=== PATIENT | male | born 1985 | race Two or more races ===

== ENCOUNTER 2020-05-11 16:14 | Inpatient (IN) | payer OTHER ==
[~2020-05-11] VITALS: Ht 177.8 cm; Wt 94.1 kg
[2020-05-11] MEDS ORDERED: SODIUM CHLORIDE 0.9% 1,000 ML IVB ONE (16:34)
[2020-05-11] MEDS ORDERED: ONDANSETRON HCL 4 MG/2 ML VIAL IV ONE (16:45)
[2020-05-11 17:14] LABS: Basophils # (auto) 0.1 10 ^3/uL (0-0.2); Basophils % (auto) 0.5 % (0.0-2.0); Eosinophils # (auto) 0.2 10 ^3/uL (0-0.8); Eosinophils % (auto) 2.1 % (0.0-7.0); Hematocrit 49.2 % (41.0-53.0); Hemoglobin 16.1 g/dL (13.5-17.5); Lymphocytes # (auto) 3.4 10 ^3/uL (0.4-5.4); Mean Corpuscular Hgb Conc. 32.8 g/dL (32.0-36.0); Mean Corpuscular Volume 85.4 fL (80.0-100.0); Monocytes # (auto) 0.5 10 ^3/uL (0-1.3); Monocytes % (auto) 5.5 % (0.0-12.0); Neutrophils # (auto) 5.6 10 ^3/uL (1.6-8.6); Neutrophils % (auto) 56.9 % (37.0-80.0); Nucleated Red Blood Cells % 0.3 %; Platelet Count (auto) 261 10^3/uL (140-450); Red Blood Cells 5.76 10^6/uL (4.5-5.90); Red Cell Distribution Width 13.8 % (11.8-14.3); White Blood Cell 9.8 10^3/uL (4.4-10.8)
[2020-05-11 17:27] LABS: Calcium 9.1 mg/dL (8.5-10.1); Chloride 109 mmol/L (98-107); Potassium 3.8 mmol/L (3.5-5.1); Sodium 139 mmol/L (136-145)
[2020-05-11 17:31] LABS: Alanine Aminotransferase 110 U/L (16-61); Albumin 4.1 g/dL (3.4-5.0); Anion Gap 10 (5-15); Aspartate Aminotransferase 38 U/L (15-37); BUN/Creatinine Ratio 16.2; Blood Urea Nitrogen 16 mg/dL (7-18); Carbon Dioxide 20 mmol/L (21-32); GFR African American 113 mL/min; GFR Non-African American 93 mL/min; Glucose 99 mg/dL (74-106); Lipase 122 U/L (73-393)
[2020-05-11 17:33] LABS: Alkaline Phosphatase 137 U/L (45-117); Bilirubin, Total 0.7 mg/dL (0.2-1.0); Total Protein 8.5 g/dL (6.4-8.2)
[2020-05-11] MEDS ORDERED: MORPHINE SULFATE 4 MG/ML SYR/VIAL IV ONE (18:15)
[2020-05-11 18:27] LABS: Urine Bacteria NONE SEEN /hpf (None Seen); Urine Blood Negative /uL (Negative); Urine Mucus FEW (None Seen); Urine Specific Gravity 1.019 (1.001-1.035); Urine WBC 1 /hpf (0 - 3)
[2020-05-11] MEDS ORDERED: ONDANSETRON HCL 4 MG/2 ML VIAL IV PRN (19:00)
[2020-05-11] MEDS ORDERED: NITROGLYCERIN 0.4 MG SL TAB SL PRN (19:00)
[2020-05-11] MEDS ORDERED: MORPHINE SULF INJ 2 MG/ML SYRINGE 1ML IV PRN (19:00)
[2020-05-11] MEDS ORDERED: D5W/SOD CHL 0.45% 1,000 ML IV ONE (19:00)
[2020-05-11 19:58] LABS: INR 1.01 (0.9-1.15); Partial Thromboplastin Time 28.6 sec (23.0-31.2)
--- NOTE | 2020-05-11 21:40 | NUR ---
Opening Shift Note Patient came up to unit via wheelchair. Assumed care of patient, awake and alert. A&O x4. No S/S of distress/SOB or pain. Oriented patient to unit and room. Patient verbalized understanding. Safety measures maintained by keeping the bed locked in lowest position, 2 side rails up, personal items and call light within reach. Instructed on POC and to call for assist PRN, will continue to monitor for changes Q1hr and PRN.
[2020-05-11] MEDS: PIPERACILLIN-TAZO 4.5GM 100 ML IV SCH (23:31)
[2020-05-12 01:10] VITALS: BP 135/75
[2020-05-12] MEDS: MORPHINE SULFATE 4 MG/ML SYR/VIAL IV PRN ×5 (01:51→19:49)
--- NOTE | 2020-05-12 02:10 | NUR ---
COVID Swab Walked COVID swab down to lab
[2020-05-12 05:00] VITALS: BP 152/84
[2020-05-12] MEDS: PIPERACILLIN-TAZO 4.5GM 100 ML IV SCH ×3 (06:53→21:54)
[2020-05-12 08:07] LABS: Basophils # (auto) 0 10 ^3/uL (0-0.2); Basophils % (auto) 0.5 % (0.0-2.0); Eosinophils # (auto) 0.3 10 ^3/uL (0-0.8); Eosinophils % (auto) 3.4 % (0.0-7.0); Hematocrit 46.4 % (41.0-53.0); Hemoglobin 15.4 g/dL (13.5-17.5); Lymphocytes # (auto) 2.5 10 ^3/uL (0.4-5.4); Lymphocytes % (auto) 30.5 % (10.0-50.0); Mean Corpuscular Hemoglobin 28.2 pg (28.0-32.0); Mean Corpuscular Hgb Conc. 33.2 g/dL (32.0-36.0); Mean Corpuscular Volume 84.9 fL (80.0-100.0); Monocytes # (auto) 0.5 10 ^3/uL (0-1.3); Monocytes % (auto) 6.1 % (0.0-12.0); Neutrophils # (auto) 4.8 10 ^3/uL (1.6-8.6); Neutrophils % (auto) 59.5 % (37.0-80.0); Nucleated Red Blood Cells % 0.2 %; Platelet Count (auto) 228 10^3/uL (140-450); Red Blood Cells 5.47 10^6/uL (4.5-5.90); Red Cell Distribution Width 13.4 % (11.8-14.3); White Blood Cell 8.1 10^3/uL (4.4-10.8)
[2020-05-12 08:25] LABS: Albumin 3.8 g/dL (3.4-5.0); Calcium 8.9 mg/dL (8.5-10.1); Potassium 3.9 mmol/L (3.5-5.1)
[2020-05-12 08:28] LABS: Total Protein 7.6 g/dL (6.4-8.2)
--- NOTE | 2020-05-12 08:40 | NUR ---
C/O PAIN LAST DOSE MORPHINE GIVEN AT 0632. Q 4HR NOT EFFECTIVE. DR DHRUV PARKER FOR ORDERS
[2020-05-12 09:00] VITALS: BP 144/94
[2020-05-12] MEDS: ENOXAPARIN SOD 40 MG/0.4 ML SYRINGE SC SCH (10:58)
[2020-05-12] MEDS: PANTOPRAZOLE 40 MG/10 ML VIAL INJ IV SCH (10:58)
[2020-05-12 12:57] VITALS: BP 147/77
[2020-05-12 17:00] VITALS: BP 134/78
--- NOTE | 2020-05-12 19:30 | NUR ---
Opening Shift Note Assumed care of patient, awake and alert. A&Ox4. Patient lying in bed. Patient complaining of abdominal pain, 05/18. Medication given. Safety measures maintained by keeping the bed locked in lowest position, 2 side rails up, personal items and call light within reach. Instructed on POC and to call for assist PRN, will continue to monitor for changes Q1hr and PRN.
[2020-05-12 22:00] VITALS: BP 139/89
[2020-05-13] MEDS: MORPHINE SULFATE 4 MG/ML SYR/VIAL IV PRN ×3 (00:15→09:26)
[2020-05-13 05:00] VITALS: BP 144/73
[2020-05-13 06:21] LABS: Potassium 3.8 mmol/L (3.5-5.1)
[2020-05-13 06:28] LABS: Albumin 3.6 g/dL (3.4-5.0); BUN/Creatinine Ratio 8.8; Bilirubin, Total 0.9 mg/dL (0.2-1.0); Calcium 8.3 mg/dL (8.5-10.1); Total Protein 7.1 g/dL (6.4-8.2)
[2020-05-13] MEDS: PIPERACILLIN-TAZO 4.5GM 100 ML IV SCH ×2 (07:05→22:03)
[2020-05-13 09:00] VITALS: BP 131/79
[2020-05-13] MEDS: PANTOPRAZOLE 40 MG/10 ML VIAL INJ IV SCH (11:50)
[2020-05-13] MEDS: ENOXAPARIN SOD 40 MG/0.4 ML SYRINGE SC SCH (11:51)
--- NOTE | 2020-05-13 11:59 | NUR ---
IV HEPLOCKED AND WRAPPED. SHOWERS. EDUCATION ON GALL BLADDER SX PRINTED IN SWISS PROVIDED
[2020-05-13 12:49] VITALS: BP 133/85
[2020-05-13] MEDS ORDERED: LIDOCAINE 1% HCL (LOCAL ANESTH.) INJ 20ML MDV ONE (14:02)
[2020-05-13] MEDS ORDERED: BUPIVACAINE HCL 50 ML ONE (14:02)
--- NOTE | 2020-05-13 14:10 | NUR ---
PT TO OR WITH PREOP RN'S AND CORRECTION OFFICERS.
[2020-05-13] MEDS ORDERED: fentaNYL CITRATE 100 MCG/2 ML VL ONE (14:13)
[2020-05-13] MEDS ORDERED: MIDAZOLAM HCL 1MG/1ML-2 ML VIAL ONE (14:13)
[2020-05-13] MEDS ORDERED: MEPERIDINE HCL (50 MG/ML) 1 ML VIAL ONE (14:13)
[2020-05-13] MEDS ORDERED: ceFAZolin 1GM/50ML 50 ML IV ONE (14:23)
[2020-05-13] MEDS ORDERED: DexAMETHasone SOD PHOS 10MG/1ML VIAL INJ ONE (14:53)
[2020-05-13] MEDS ORDERED: PROPOFOL 10 MG/ML 20 ML IV ONE (14:54)
[2020-05-13] MEDS ORDERED: ROCURONIUM 10MG/ML 10ML VIAL IV ONE (15:02)
[2020-05-13] MEDS ORDERED: GLYCOPYRROLATE 0.2 MG/ML 1ML VIAL ONE (15:52)
[2020-05-13] MEDS ORDERED: NEOSTIGMINE 1 MG/ML INJ (10mg/10ML VIAL) ONE (15:52)
[2020-05-13] MEDS ORDERED: OXYCODONE W/ ACETAMINOPHEN 5/325MG TABLET PO PRN ×2 (16:15)
[2020-05-13] MEDS ORDERED: MORPHINE SULF INJ 2 MG/ML SYRINGE 1ML IV PRN (16:15)
[2020-05-13] MEDS ORDERED: HYDROmorphone HCL 2 MG/ML VL IV PRN (17:00)
[2020-05-13] MEDS ORDERED: ONDANSETRON HCL 4 MG/2 ML VIAL IV PRN ×2 (17:00→20:30)
[2020-05-13] MEDS ORDERED: MORPHINE SULFATE 4 MG/ML SYR/VIAL IV PRN (17:00)
[2020-05-13] MEDS ORDERED: ePHEDrine SULFATE 50 MG/ML AMP IV PRN (17:00)
[2020-05-13] MEDS ORDERED: LABETALOL HCL 5 MG/ML 4ML SYRINGE IV PRN (17:00)
[2020-05-13] MEDS ORDERED: ONDANSETRON HCL 4 MG/2 ML VIAL ONE (19:29)
--- NOTE | 2020-05-13 19:33 | NUR ---
ON RETURN FROM PACU. DROWSY EASY TO AROUSE. 5 PUNCTURE SITES WITH OCCLUSIVE DSG TO ABDOMEN WITH SOME STAINING. ABDOMEN SOFT TO TOUCH NON DISTENDED. PT UP TO BR TIMES TWO. BELCHES C/O NAUSEA. MENDIETA COMPLEXION. MEDICATED WITH ZOFRAN 4MG IV PRN. IV FLUIDS 0.9 NS AT 100CC/HR SET TO PUMP.
[2020-05-13] MEDS ORDERED: ALBUMIN 5% 250 ML IV ONE ×2 (21:01→21:30)
--- NOTE | 2020-05-13 21:05 | NUR ---
WEDGER MACHINE made this nurse aware pf pt's BP reading at 79/41. pt was immediately reassessed with the WEDGER MACHINE and nurse together at bedside. pt's BP was assessed on both arms multiple times, all BPs ranged in the 70s/40s, HR was 118 initially and stayed in the 110s. all other v/s were WNL. pt was pale and lethargic. it was at this time that a code assist was called. refer to code assist charting for further details on the occurrence.
[2020-05-13 21:27] LABS: Albumin 2.7 g/dL (3.4-5.0); Anion Gap 10 (5-15); BUN/Creatinine Ratio 7.5; Blood Urea Nitrogen 11 mg/dL (7-18); Carbon Dioxide 19 mmol/L (21-32); Chloride 110 mmol/L (98-107); GFR African American 71 mL/min; GFR Non-African American 59 mL/min; Glucose 198 mg/dL (74-106); Potassium 4.1 mmol/L (3.5-5.1); Sodium 139 mmol/L (136-145)
[2020-05-13 21:32] LABS: Alanine Aminotransferase 117 U/L (16-61); Alkaline Phosphatase 96 U/L (45-117); Aspartate Aminotransferase 54 U/L (15-37); Bilirubin, Total 0.6 mg/dL (0.2-1.0)
[2020-05-13] MEDS: SODIUM CHLORIDE 0.9% 1,000 ML IV SCH (22:02)
[2020-05-13 22:08] VITALS: BP 117/79
--- NOTE | 2020-05-13 22:31 | NUR ---
MD Ruano called and spokke to him via telephone. MD requesting to have lab called to expedite labs he ordered. lab was called and stated that the amount of blood collected was not enough and that they need to come and redraw the pt. lab was made aware via telephone that MD was requesting this order stat. lab stated they were aware of the stat request.
[2020-05-13 23:15] LABS: Basophils # (auto) 0 10 ^3/uL (0-0.2); Basophils % (auto) 0.1 % (0.0-2.0); Eosinophils # (auto) 0 10 ^3/uL (0-0.8); Hematocrit 32.7 % (41.0-53.0); Hemoglobin 10.6 g/dL (13.5-17.5); Lymphocytes # (auto) 1.2 10 ^3/uL (0.4-5.4); Lymphocytes % (auto) 5.4 % (10.0-50.0); Mean Corpuscular Hgb Conc. 32.5 g/dL (32.0-36.0); Mean Corpuscular Volume 86.2 fL (80.0-100.0); Monocytes % (auto) 4.3 % (0.0-12.0); Neutrophils # (auto) 20.7 10 ^3/uL (1.6-8.6); Neutrophils % (auto) 90.2 % (37.0-80.0); Platelet Count (auto) 291 10^3/uL (140-450); Red Cell Distribution Width 13.1 % (11.8-14.3)
[2020-05-13] MEDS ORDERED: VANCOMYCIN 1GM/250ML 250 ML IV ONE (23:45)
--- NOTE | 2020-05-13 23:45 | NUR ---
MD Galloway was paged and notified via telephone that pt has a code assist called and the information on the code was given to him verbally. placed orders, will follow through with orders and notify MD of any acute changes throughout the night.
[2020-05-14 00:53] LABS: Lactic Acid w/Reflex 2.6 mmol/L (0.4-2.0)
[2020-05-14] MEDS: SODIUM CHLORIDE 0.9% 1,000 ML IV SCH ×2 (02:15→12:15)
[2020-05-14] MEDS: HYDROcodone-ACET 10/325MG TAB PO PRN ×2 (02:30→06:43)
[2020-05-14 06:25] VITALS: BP 110/61
[2020-05-14] MEDS: PIPERACILLIN-TAZO 4.5GM 100 ML IV SCH ×3 (06:42→22:30)
--- NOTE | 2020-05-14 07:00 | NUR ---
Opening Shift Report Received report on the patient. Awake lying in bed. Patient shows no signs of distress. Discussed the plan of care with the patient. Bed in lowest position, side rails up x2, and the call light is within reach.
[2020-05-14] MEDS ORDERED: VANCOMYCIN PER PHARMACY 0 MG IV SCH (08:30)
[2020-05-14] MEDS: VANCOMYCIN 1GM/250ML 250 ML IV ONE ×2 (08:45→09:02)
[2020-05-14 09:00] VITALS: BP 122/81
[2020-05-14] MEDS: PANTOPRAZOLE 40 MG TAB PO SCH (09:02)
[2020-05-14] MEDS: ENOXAPARIN SOD 40 MG/0.4 ML SYRINGE SC SCH (09:02)
[2020-05-14] MEDS: KETOROLAC TROMETH 30 MG/ML 1ML VIAL IV PRN ×2 (09:03→15:11)
[2020-05-14] MEDS ORDERED: VANCOMYCIN 1GM/250ML 250 ML IV SCH (10:00)
[2020-05-14 10:33] LABS: Basophils # (auto) 0 10 ^3/uL (0-0.2); Basophils % (auto) 0.2 % (0.0-2.0); Eosinophils # (auto) 0 10 ^3/uL (0-0.8); Eosinophils % (auto) 0.1 % (0.0-7.0); Hematocrit 25.6 % (41.0-53.0); Hemoglobin 8.7 g/dL (13.5-17.5); Lymphocytes # (auto) 1.1 10 ^3/uL (0.4-5.4); Lymphocytes % (auto) 11.2 % (10.0-50.0); Mean Corpuscular Hemoglobin 28.6 pg (28.0-32.0); Mean Corpuscular Hgb Conc. 33.9 g/dL (32.0-36.0); Mean Corpuscular Volume 84.5 fL (80.0-100.0); Monocytes # (auto) 0.7 10 ^3/uL (0-1.3); Monocytes % (auto) 6.9 % (0.0-12.0); Neutrophils # (auto) 7.8 10 ^3/uL (1.6-8.6); Neutrophils % (auto) 81.6 % (37.0-80.0); Platelet Count (auto) 231 10^3/uL (140-450); Red Blood Cells 3.04 10^6/uL (4.5-5.90); Red Cell Distribution Width 13.1 % (11.8-14.3); White Blood Cell 9.6 10^3/uL (4.4-10.8)
[2020-05-14 10:47] LABS: Albumin 3.2 g/dL (3.4-5.0); Calcium 8.2 mg/dL (8.5-10.1); Potassium 4.1 mmol/L (3.5-5.1)
[2020-05-14 10:51] LABS: BUN/Creatinine Ratio 12.6; Bilirubin, Total 0.6 mg/dL (0.2-1.0); Total Protein 5.8 g/dL (6.4-8.2)
[2020-05-14 12:27] LABS: Hepatitis A Ab IgM Negative; Hepatitis B Core IgM Negative; Hepatitis B Surface Antigen Negative (Negative)
[2020-05-14 12:29] LABS: Hepatitis C Antibody Positive (Negative)
--- NOTE | 2020-05-14 12:37 | NUR ---
Patient positive for Hep C. Nilesh notified.
[2020-05-14 13:00] VITALS: BP 110/67
--- NOTE | 2020-05-14 14:55 | NUR ---
Called Dr. Inman regarding the bloody dressing and a temp of 100.4. Dr stated that the bloody dressing was fine and that the patient needed to use the IS to help with the temp. Educated patient on using the IS, but patient stated he was in too much pain. Gave pain meds and instructed patient to use IS.
--- NOTE | 2020-05-14 14:56 | NUR ---
Dr Inman also wants the patient to walk. PT ordered
[2020-05-14 16:47] VITALS: BP 116/68
--- NOTE | 2020-05-14 18:45 | NUR ---
Dr Inman at bedside. New orders received. Informed MD again about the bloody dressing and MD stated "it's ok". Also informed MD about the patient's temp of 100.6. Was told it was because of atelectasis. No new orders received.
--- NOTE | 2020-05-14 19:00 | NUR ---
RT NOTE PT SEEN BY RT TO DRAW ABG. PT REFUSED EVEN WITH RT EXPLAINING THE BENEFIT OF HAVING THE DRAW DONE SO THAT THE MD CAN GAIN MORE INFORMATION ON THE PT. RT WILL PASS ON TO DAYSHIFT RT TO SEE IF THEY CAN GET THE ABG IN THE MORNING.
[2020-05-14 20:01] LABS: Basophils # (auto) 0 10 ^3/uL (0-0.2); Eosinophils # (auto) 0 10 ^3/uL (0-0.8); Hemoglobin 7.7 g/dL (13.5-17.5); Lymphocytes # (auto) 1.4 10 ^3/uL (0.4-5.4); Lymphocytes % (auto) 18.7 % (10.0-50.0); Monocytes # (auto) 0.6 10 ^3/uL (0-1.3); Neutrophils # (auto) 5.5 10 ^3/uL (1.6-8.6); Red Cell Distribution Width 13.4 % (11.8-14.3); White Blood Cell 7.5 10^3/uL (4.4-10.8)
[2020-05-14] MEDS: MORPHINE SULF INJ 2 MG/ML SYRINGE 1ML IV PRN ×2 (20:02→22:20)
--- NOTE | 2020-05-14 20:04 | NUR ---
RECEIVED PATIENT FROM DAY SHIFT RN. PATIENT RESTING IN BED. NO S/S OF DISTRESS NOTED. C/O ABD PAIN @ 9/10, PREFERRED TO HAVE MORPHINE. BP 115/67, HR 130, MEDICATED PATIENT ORDERED. DRESSINGS D/I EXCEPT THE TOP ONE WITH BLOOD. MD AWARE. POC INSTRUCTED AND ENCOURAGED PATIENT TO CALL FOR LURE MAKER IF NEEDED. BED IN LOWEST POSITION WITH SIDE RAILS UP X 2. CALL GALE WITHIN REACH. ALARM ON. GUARDS AT BEDSIDE. CONTINUE TO MONITOR FOR CHANGES Q1H AND PRN
[2020-05-14 20:05] LABS: Basophils % (auto) 0.4 % (0.0-2.0); Eosinophils % (auto) 0.1 % (0.0-7.0); Hematocrit 22.3 % (41.0-53.0); Mean Corpuscular Hemoglobin 29.2 pg (28.0-32.0); Mean Corpuscular Hgb Conc. 34.5 g/dL (32.0-36.0); Mean Corpuscular Volume 84.9 fL (80.0-100.0); Monocytes % (auto) 7.8 % (0.0-12.0); Nucleated Red Blood Cells % 0.1 %; Platelet Count (auto) 183 10^3/uL (140-450); Red Blood Cells 2.63 10^6/uL (4.5-5.90)
--- NOTE | 2020-05-14 20:30 | NUR ---
REASSESSED PAIN, 05/18. CONTINUE TO MONITOR.
--- NOTE | 2020-05-14 21:46 | NUR ---
PAGED/CALLED PER MD KU'S REQUESTS, CALLED @ [phone] FOR FEVER MEDICATION PATIENT'S TEMP 102.9, PATIENT IS ON COOLING MEASURE AND ICE PACKS ON. CONTINUE TO MONITOR.
[2020-05-14 22:00] VITALS: BP 106/59
--- NOTE | 2020-05-14 22:20 | NUR ---
PATIENT PREFERRED MORPHINE, BP 120/79, HR 130. MEDICATED PATIENT FOR PAIN @ 9/10 ORDERED. CONTINUE TO MONITOR.
--- NOTE | 2020-05-14 22:26 | NUR ---
RE-PAGED/CALLED Dr. KU CALLED FOR FEVER, updated on patient status and reason for call, orders received. Continue care.
--- NOTE | 2020-05-14 22:40 | NUR ---
CALLED OUTSIDE PHARMACY TO VERIFY PATIENT'S MEDICATION. CONTINUE TO MONITOR.
[2020-05-14] MEDS ORDERED: OXYCODONE W/ ACETAMINOPHEN 5/325MG TABLET PO PRN (22:45)
--- NOTE | 2020-05-14 22:45 | NUR ---
REASSESSED PAIN @ 04/17. WILL GIVEN PERCOCET PER MD ORDERED LATER FOR PAIN AND FEVER. CONTINUE TO MONITOR.
--- NOTE | 2020-05-14 23:17 | NUR ---
RT NOTE PT DID ALLOW FOR RT TO DRAW ABG. ABG WAS MIXED VENOUS. PT WILL NOT ALLOW RT TO TRY AGAIN. ON THE MIXED VENOUS DRAW, PH 7.370, PCO2 40.7, PO2 NOT ABLE TO READ DUE TO MIXED SAMPLE, HCO3 23. PT ON ROOM AIR FOR DRAW.
[2020-05-14] MEDS: OXYCODONE W/ ACETAMINOPHEN 5/325MG TABLET PO PRN (23:45)
--- NOTE | 2020-05-14 23:45 | NUR ---
MEDICATED PATIENT FOR PAIN @ 7/10 AND FEVER 102.9 ORDERED. PATIENT STILL ON COOLING MEASURE AND ICE PACKS. CONTINUE TO MONITOR.
[2020-05-15] VITALS (12 sets, daily range): BP systolic 107–149; BP diastolic 61–78
--- NOTE | 2020-05-15 00:59 | NUR ---
REASSESSED TEMP 100.9, PAIN 6/10. CONTINUE TO MONITOR.
[2020-05-15] MEDS ORDERED: VANCOMYCIN 1GM/250ML 250 ML IV SCH ×2 (01:00→13:00)
--- NOTE | 2020-05-15 01:50 | NUR ---
REASSESSED TEMP 99.7. COOLING MEASURE AND ICE PACKS CONTINUED. CONTINUE TO MONITOR.
--- NOTE | 2020-05-15 03:56 | NUR ---
BLOOD TRANSFUSION STARTED @ 0354, VIRALS: TEMP 98.5, HR 102, RR 18, BP 127/74, O2 SAT 95% ON RA. NO S/S OF REACTION NOTED. CONTINUE TO MONITOR.
[2020-05-15] MEDS: SODIUM CHLORIDE 0.9% 1,000 ML IV SCH ×3 (04:05→18:45)
[2020-05-15] MEDS: OXYCODONE W/ ACETAMINOPHEN 5/325MG TABLET PO PRN ×4 (04:05→20:05)
--- NOTE | 2020-05-15 04:08 | NUR ---
PATIENT C/O PAIN @ 06/18. MEDICATED PATIENT ORDERED. CONTINUE TO MONITOR.
--- NOTE | 2020-05-15 07:00 | NUR ---
Opening Shift Report Received report on the patient. Awake lying in bed. Patient is in pain. MD aware. Discussed the plan of care with the patient. Bed in lowest position, side rails up x2, and the call light is within reach.
--- NOTE | 2020-05-15 07:23 | NUR ---
BLOOD TRANSFUSION COMPLETED. PATIENT TOLERATED WELL. NO S/S OF REACTION NOTED. VITALS STABLE, TEMP 98.5, HR 97, RR 18, BP 107/61. O2 SAT 92% ON RA. CONTINUE TO MONITOR.
--- NOTE | 2020-05-15 07:24 | NUR ---
REPORT GIVEN TO DAY SHIFT RN. MD NEEDS TO SIGN CONSENT FORM OF BLOOD TRANSFUSION. CHRISTOPHER SHEPHERD VERBALIZED UNDERSTANDING.
--- NOTE | 2020-05-15 07:42 | NUR ---
Called lab regarding 4am lab draw. Was told that someone was on the way.
[2020-05-15] MEDS: PIPERACILLIN-TAZO 4.5GM 100 ML IV SCH ×3 (07:51→21:24)
--- NOTE | 2020-05-15 08:21 | NUR ---
Called lab again regarding lab draw. Was told they would page.
[2020-05-15] MEDS: ENOXAPARIN SOD 40 MG/0.4 ML SYRINGE SC SCH (08:28)
[2020-05-15] MEDS: PANTOPRAZOLE 40 MG TAB PO SCH (08:29)
--- NOTE | 2020-05-15 08:52 | NUR ---
CALLED DR KU REGARDING THE DISTENDED RIGHT SIDE OF THE ABDOMEN. STATED TO KEEP THE PATIENT NPO BECAUSE HE MAY NEED TO GO BACK TO SURGERY. ALSO WANTS ME TO CALL HIM BACK WITH NEW CBC AND CMP. ALSO REQUESTED THAT I HAVE THE HOUSE SUP CALL HIM TO SCHEDULE A ROOM. HOUSE SUP AWARE. PATIENT MADE NPO.
[2020-05-15 09:11] LABS: Hemoglobin 8.1 g/dL (13.5-17.5); Monocytes # (auto) 0.8 10 ^3/uL (0-1.3)
[2020-05-15 09:14] LABS: Basophils # (auto) 0 10 ^3/uL (0-0.2); Basophils % (auto) 0.5 % (0.0-2.0); Eosinophils # (auto) 0 10 ^3/uL (0-0.8); Eosinophils % (auto) 0.6 % (0.0-7.0); Hematocrit 24.2 % (41.0-53.0); Lymphocytes # (auto) 1.8 10 ^3/uL (0.4-5.4); Lymphocytes % (auto) 23.9 % (10.0-50.0); Mean Corpuscular Hemoglobin 28.4 pg (28.0-32.0); Mean Corpuscular Hgb Conc. 33.5 g/dL (32.0-36.0); Mean Corpuscular Volume 84.7 fL (80.0-100.0); Monocytes % (auto) 10.4 % (0.0-12.0); Neutrophils % (auto) 64.6 % (37.0-80.0); Platelet Count (auto) 156 10^3/uL (140-450); Red Blood Cells 2.86 10^6/uL (4.5-5.90); Red Cell Distribution Width 13.4 % (11.8-14.3); White Blood Cell 7.7 10^3/uL (4.4-10.8)
[2020-05-15 09:19] LABS: Albumin 2.9 g/dL (3.4-5.0); Calcium 7.9 mg/dL (8.5-10.1); Potassium 3.8 mmol/L (3.5-5.1)
[2020-05-15 09:23] LABS: BUN/Creatinine Ratio 13.2; Total Protein 5.8 g/dL (6.4-8.2)
--- NOTE | 2020-05-15 09:47 | NUR ---
CALLED DR KU AND LEFT HIM A MESSAGE WITH THE HGB OF 8.1.
--- NOTE | 2020-05-15 10:04 | NUR ---
CALLED DR KOHLI AND LEFT A MESSAGE WITH THE B.
--- NOTE | 2020-05-15 10:54 | NUR ---
DR KOHLI AT BEDSIDE. NEW ORDERS RECEIVED.
[2020-05-15] MEDS ORDERED: IOHEXOL 350 MG/ML 100ML IJ ONE (11:07)
--- NOTE | 2020-05-15 11:29 | NUR ---
DR KU CALLED BACK. NEW ORDERS RECEIVED.
--- NOTE | 2020-05-15 11:30 | NUR ---
PATIENT DOWN TO RADIOLOGY FOR CT. PATIENT SHOWS NO SIGNS OF DISTRESS.
--- NOTE | 2020-05-15 12:20 | NUR ---
CALLED DR KU WITH THE RESULTS OF THE CTA. NO NEW ORDERS
[2020-05-15 12:41] LABS: INR 1.09 (0.9-1.15)
--- NOTE | 2020-05-15 14:50 | NUR ---
PATIENT DOWN TO OR. PATIENT SHOWS NO SIGNS OF DISTRESS AT THIS TIME.
[2020-05-15] MEDS ORDERED: LIDOCAINE 1% HCL (LOCAL ANESTH.) INJ 20ML MDV ONE (14:52)
[2020-05-15] MEDS ORDERED: BUPIVACAINE 0.5% MPF INJ 30ML SDV IJ ONE (14:52)
--- NOTE | 2020-05-15 15:15 | NUR ---
PT WENT DOWN TO OR. ATTEMPT P.T. TOMORROW.
[2020-05-15] MEDS ORDERED: SUCCINYLCHOLINE CHLORIDE 20 MG/ML 10ML VIAL IV ONE (15:29)
[2020-05-15] MEDS ORDERED: MIDAZOLAM HCL 1MG/1ML-2 ML VIAL ONE (15:32)
[2020-05-15] MEDS ORDERED: ETOMIDATE (2MG/ML) 20ML VIAL IV ONE (15:33)
[2020-05-15] MEDS ORDERED: METOCLOPRAMIDE HCL 5MG/ml INJ 2ml VIAL ONE (15:33)
[2020-05-15] MEDS ORDERED: LIDOCAINE 1% (LOCAL ANESTH.) PF 5ml SDV ONE (15:37)
[2020-05-15] MEDS ORDERED: fentaNYL CITRATE 100 MCG/2 ML VL ONE (15:41)
[2020-05-15] MEDS ORDERED: STERILE WATER 10 ML ONE (15:47)
[2020-05-15] MEDS ORDERED: PHENYLEPHRINE HCL 10 MG/ML VL ONE (15:47)
--- NOTE | 2020-05-15 15:52 | NUR ---
Nutrition Assessment Notes Please refer to link for full assessment notes. Est Energy needs: 5849-3614 kcals (17-20 kcal/kgBW) Est Protein needs: 78-97 gms/day (0.8-1.0 gm/kgBW) Will continue to monitor and reassess prn. Addendum: 05/15/20 at [address] Amended: Links added.
[2020-05-15] MEDS ORDERED: GLYCOPYRROLATE 0.2 MG/ML 1ML VIAL ONE (16:26)
[2020-05-15] MEDS ORDERED: NEOSTIGMINE 1 MG/ML INJ (10mg/10ML VIAL) ONE (16:26)
[2020-05-15] MEDS ORDERED: HYDROmorphone HCL 2 MG/ML VL IV PRN ×2 (16:30)
[2020-05-15] MEDS ORDERED: NALOXONE HCL 0.4 MG/ML VIAL IV PRN (16:30)
[2020-05-15] MEDS ORDERED: ONDANSETRON HCL 4 MG/2 ML VIAL IV PRN (16:30)
[2020-05-15 17:35] LABS: Basophils # (auto) 0 10 ^3/uL (0-0.2); Basophils % (auto) 0.4 % (0.0-2.0); Eosinophils # (auto) 0.1 10 ^3/uL (0-0.8); Hemoglobin 8.2 g/dL (13.5-17.5); Red Cell Distribution Width 13.5 % (11.8-14.3)
[2020-05-15 17:37] LABS: Eosinophils % (auto) 1.3 % (0.0-7.0); Hematocrit 24.5 % (41.0-53.0); Lymphocytes # (auto) 1.3 10 ^3/uL (0.4-5.4); Lymphocytes % (auto) 18.9 % (10.0-50.0); Mean Corpuscular Hgb Conc. 33.7 g/dL (32.0-36.0); Mean Corpuscular Volume 86.2 fL (80.0-100.0); Monocytes # (auto) 0.6 10 ^3/uL (0-1.3); Monocytes % (auto) 8.6 % (0.0-12.0); Neutrophils % (auto) 70.8 % (37.0-80.0); Platelet Count (auto) 149 10^3/uL (140-450); Red Blood Cells 2.84 10^6/uL (4.5-5.90)
--- NOTE | 2020-05-15 17:41 | NUR ---
PATIENT BACK TO THE FLOOR. PATIENT SHOWS NO SIGNS OF DISTRESS. ADRIANA DRAIN EMPTIED IN OR.
--- NOTE | 2020-05-15 17:56 | NUR ---
CALLED DR KU WITH THE RESULTS OF THE CBC. NEW ORDERS RECEIVED.
[2020-05-15] MEDS: VANCOMYCIN 1GM/250ML 250 ML IV SCH (18:10)
--- NOTE | 2020-05-15 20:05 | NUR ---
Opening Shift Note Assumed care of patient, awake and alert. No S/S of distress/SOB c/o abdominal pain. Instructed on POC and to call for assist PRN, will continue to monitor for changes Q1hr and PRN.Medicated with Percocet 5/325mg.p.o 2 tab for pain level of 10/10.
--- NOTE | 2020-05-15 22:00 | NUR ---
Cooling measures done for Temp. of 100.3.
--- NOTE | 2020-05-16 00:25 | NUR ---
Recheck temperature, 100.3, cooling measures done.
[2020-05-16] MEDS: VANCOMYCIN 1GM/250ML 250 ML IV SCH ×3 (01:38→18:36)
[2020-05-16 01:48] LABS: Basophils # (auto) 0 10 ^3/uL (0-0.2); Basophils % (auto) 0.3 % (0.0-2.0); Eosinophils # (auto) 0.2 10 ^3/uL (0-0.8); Eosinophils % (auto) 2.3 % (0.0-7.0); Hematocrit 26.3 % (41.0-53.0); Lymphocytes # (auto) 1.9 10 ^3/uL (0.4-5.4); Lymphocytes % (auto) 23.3 % (10.0-50.0); Mean Corpuscular Hemoglobin 29.1 pg (28.0-32.0); Mean Corpuscular Hgb Conc. 34.1 g/dL (32.0-36.0); Mean Corpuscular Volume 85.4 fL (80.0-100.0); Monocytes # (auto) 0.7 10 ^3/uL (0-1.3); Monocytes % (auto) 9.2 % (0.0-12.0); Neutrophils # (auto) 5.2 10 ^3/uL (1.6-8.6); Neutrophils % (auto) 64.9 % (37.0-80.0); Platelet Count (auto) 166 10^3/uL (140-450); Red Blood Cells 3.08 10^6/uL (4.5-5.90); Red Cell Distribution Width 13.5 % (11.8-14.3)
[2020-05-16] MEDS: SODIUM CHLORIDE 0.9% 1,000 ML IV SCH (04:15)
[2020-05-16] MEDS: OXYCODONE W/ ACETAMINOPHEN 5/325MG TABLET PO PRN ×3 (04:55→18:36)
[2020-05-16 05:00] VITALS: BP 147/88
[2020-05-16] MEDS: PIPERACILLIN-TAZO 4.5GM 100 ML IV SCH ×3 (05:56→22:21)
[2020-05-16 07:23] LABS: Basophils # (auto) 0 10 ^3/uL (0-0.2); Basophils % (auto) 0.3 % (0.0-2.0); Eosinophils # (auto) 0.1 10 ^3/uL (0-0.8); Eosinophils % (auto) 1.4 % (0.0-7.0); Hematocrit 24.5 % (41.0-53.0); Hemoglobin 8.3 g/dL (13.5-17.5); Lymphocytes % (auto) 14.8 % (10.0-50.0); Mean Corpuscular Hemoglobin 28.5 pg (28.0-32.0); Mean Corpuscular Hgb Conc. 33.7 g/dL (32.0-36.0); Mean Corpuscular Volume 84.6 fL (80.0-100.0); Monocytes # (auto) 0.6 10 ^3/uL (0-1.3); Monocytes % (auto) 9.4 % (0.0-12.0); Neutrophils % (auto) 74.1 % (37.0-80.0); Platelet Count (auto) 146 10^3/uL (140-450); Red Blood Cells 2.89 10^6/uL (4.5-5.90); Red Cell Distribution Width 13.3 % (11.8-14.3); White Blood Cell 6.7 10^3/uL (4.4-10.8)
[2020-05-16 07:40] LABS: Potassium 3.5 mmol/L (3.5-5.1)
--- NOTE | 2020-05-16 07:40 | NUR ---
Care report given to Romana Vallecillo, patient is resting no distress.
[2020-05-16 07:43] LABS: BUN/Creatinine Ratio 9.5
--- NOTE | 2020-05-16 07:45 | NUR ---
Opening Shift Note: Assumed care of patient, awake and alert. No S/S of distress/SOB. Patient states pain level 10/10. Patient educated on medication administration. Bed in lowest locked position, side rails up x 2, call light within reach. Patient instructed on POC and to call for assist PRN, will continue to monitor for changes Q1hr and PRN.
[2020-05-16] MEDS ORDERED: D5W/SOD CHL 0.45%/KCL 20MEQ 1,000 ML IV SCH (08:45)
[2020-05-16 09:00] VITALS: BP 153/79
[2020-05-16] MEDS: PANTOPRAZOLE 40 MG TAB PO SCH (09:31)
[2020-05-16] MEDS: ENOXAPARIN SOD 30 MG/0.3 ML SYRINGE SC SCH (10:00)
[2020-05-16] MEDS: D5W/SOD CHL 0.45%/KCL 20MEQ 1,000 ML IV SCH (11:51)
[2020-05-16] MEDS: MILK OF MAGNESIA 30ML SUSP PO SCH (11:51)
[2020-05-16 13:00] VITALS: BP 136/68
[2020-05-16] MEDS: FERROUS SULFATE 300 MG/5 ML ORAL LIQ PO SCH ×2 (13:52→22:21)
[2020-05-16] MEDS: MORPHINE SULF INJ 2 MG/ML SYRINGE 1ML IV PRN (13:53)
[2020-05-16] MEDS: DOCUSATE SOD 100 MG CAP PO SCH ×2 (13:53→22:21)
[2020-05-16 17:00] VITALS: BP 149/69
--- NOTE | 2020-05-16 18:46 | NUR ---
CLOSING NOTE: PATIENT RESTING IN BED. ADRIANA DRAIN- 50 ML OUTPUT. GUARDS AT BEDSIDE. CARE ENDORSED.
--- NOTE | 2020-05-16 20:36 | NUR ---
Paged hospitalist for appropriate pain medication for patient reported headache.
[2020-05-16] MEDS ORDERED: ACETAMINOPHEN 325 MG TAB PO PRN (20:45)
--- NOTE | 2020-05-16 21:27 | NUR ---
IV insertion IV access obtained, via clean sterile technique by inserting 20 gauge catheter at Right Hand after 1 attempt. IV secured properly. No trauma to site. Patient tolerated procedure well.
[2020-05-16 22:00] VITALS: BP 143/72
[2020-05-16] MEDS: SENNA 8.6 MG TAB PO SCH (22:21)
[2020-05-17] MEDS: VANCOMYCIN 1GM/250ML 250 ML IV SCH ×4 (00:20→18:54)
[2020-05-17] MEDS: OXYCODONE W/ ACETAMINOPHEN 5/325MG TABLET PO PRN ×6 (01:52→22:56)
[2020-05-17] MEDS: D5W/SOD CHL 0.45%/KCL 20MEQ 1,000 ML IV SCH ×2 (04:59→12:25)
[2020-05-17 05:08] LABS: Basophils # (auto) 0.1 10 ^3/uL (0-0.2); Basophils % (auto) 1.1 % (0.0-2.0); Eosinophils # (auto) 0.3 10 ^3/uL (0-0.8); Eosinophils % (auto) 2.9 % (0.0-7.0); Lymphocytes # (auto) 2.2 10 ^3/uL (0.4-5.4); Lymphocytes % (auto) 25.2 % (10.0-50.0); Mean Corpuscular Hemoglobin 29.2 pg (28.0-32.0); Mean Corpuscular Hgb Conc. 34.7 g/dL (32.0-36.0); Mean Corpuscular Volume 84.2 fL (80.0-100.0); Monocytes # (auto) 0.8 10 ^3/uL (0-1.3); Monocytes % (auto) 9.5 % (0.0-12.0); Neutrophils # (auto) 5.3 10 ^3/uL (1.6-8.6); Neutrophils % (auto) 61.3 % (37.0-80.0); Nucleated Red Blood Cells % 0.2 %; Platelet Count (auto) 120 10^3/uL (140-450); Red Blood Cells 3.09 10^6/uL (4.5-5.90); Red Cell Distribution Width 13.8 % (11.8-14.3); White Blood Cell 8.6 10^3/uL (4.4-10.8)
[2020-05-17] MEDS: DOCUSATE SOD 100 MG CAP PO SCH ×3 (05:53→21:49)
[2020-05-17] MEDS: PIPERACILLIN-TAZO 4.5GM 100 ML IV SCH ×3 (05:53→22:36)
[2020-05-17 05:54] VITALS: BP 136/77
[2020-05-17] MEDS: FERROUS SULFATE 300 MG/5 ML ORAL LIQ PO SCH ×3 (05:54→21:49)
--- NOTE | 2020-05-17 07:39 | NUR ---
RECEIVED REPORT AND ASSUMED CARE OF PT. A/OX4. DENIED S/S ACUTE DISTRESS. UPDATE PT WITH POC. BED AT LOWEST POSITION. CALL LIGHT AND BELONGINGS WITHIN REACH. WILL CONT TO MONITOR.
[2020-05-17 09:00] VITALS: BP 136/80
[2020-05-17] MEDS: MILK OF MAGNESIA 30ML SUSP PO SCH (10:32)
[2020-05-17] MEDS: PANTOPRAZOLE 40 MG TAB PO SCH (10:32)
[2020-05-17 13:00] VITALS: BP 136/80
--- NOTE | 2020-05-17 15:04 | NUR ---
40ML OF SANGUINOUS DRAINAGE EMPTIED FROM ADRIANA DRAIN.
[2020-05-17] MEDS: ENOXAPARIN SOD 30 MG/0.3 ML SYRINGE SC SCH (15:10)
--- NOTE | 2020-05-17 17:25 | NUR ---
PATIENT HAS BEEN AMBULATING WITH THE GUARDS. NO FURTHER P.T. NEEDED. NURSING TO FOLLOW PATIENT.
--- NOTE | 2020-05-17 19:15 | NUR ---
Opening Shift Note Assumed care of patient, awake and alert. No S/S of distress/SOB or pain. Instructed on POC and to call for assist PRN, will continue to monitor for changes Q1hr and PRN. Bed locked in lowest position, HOB elevated at least 30 degrees, side rails up x 2 and call light is within reach.
[2020-05-17] MEDS: SENNA 8.6 MG TAB PO SCH (21:49)
[2020-05-17 22:00] VITALS: BP 135/84
--- NOTE | 2020-05-17 23:55 | NUR ---
60ML OF SANGUINOUS DRAINAGE EMPTIED FROM ADRIANA DRAIN.
[2020-05-18] MEDS: VANCOMYCIN 1GM/250ML 250 ML IV SCH ×4 (00:37→20:50)
[2020-05-18] MEDS: OXYCODONE W/ ACETAMINOPHEN 5/325MG TABLET PO PRN ×3 (03:19→17:22)
[2020-05-18] MEDS: PIPERACILLIN-TAZO 4.5GM 100 ML IV SCH ×3 (05:49→22:51)
[2020-05-18] MEDS: DOCUSATE SOD 100 MG CAP PO SCH ×3 (05:49→22:33)
[2020-05-18] MEDS: FERROUS SULFATE 300 MG/5 ML ORAL LIQ PO SCH ×3 (05:49→22:52)
[2020-05-18 06:00] VITALS: BP 121/54
--- NOTE | 2020-05-18 07:29 | NUR ---
CLOSING SHIFT NOTE ENDORSED CARE TO DAY SHIFT RN
[2020-05-18 08:11] LABS: Basophils # (auto) 0 10 ^3/uL (0-0.2); Basophils % (auto) 0.4 % (0.0-2.0); Eosinophils # (auto) 0.4 10 ^3/uL (0-0.8); Hematocrit 24.5 % (41.0-53.0); Hemoglobin 8.5 g/dL (13.5-17.5); Lymphocytes # (auto) 1.8 10 ^3/uL (0.4-5.4); Lymphocytes % (auto) 28.2 % (10.0-50.0); Mean Corpuscular Hemoglobin 29.3 pg (28.0-32.0); Mean Corpuscular Hgb Conc. 34.5 g/dL (32.0-36.0); Mean Corpuscular Volume 84.9 fL (80.0-100.0); Monocytes # (auto) 0.4 10 ^3/uL (0-1.3); Monocytes % (auto) 6.4 % (0.0-12.0); Neutrophils # (auto) 3.6 10 ^3/uL (1.6-8.6); Nucleated Red Blood Cells % 0.4 %; Platelet Count (auto) 242 10^3/uL (140-450); Red Blood Cells 2.89 10^6/uL (4.5-5.90); Red Cell Distribution Width 13.7 % (11.8-14.3); White Blood Cell 6.2 10^3/uL (4.4-10.8)
[2020-05-18] MEDS: ENOXAPARIN SOD 30 MG/0.3 ML SYRINGE SC SCH (09:14)
[2020-05-18] MEDS: MILK OF MAGNESIA 30ML SUSP PO SCH (09:14)
[2020-05-18] MEDS: PANTOPRAZOLE 40 MG TAB PO SCH (09:14)
[2020-05-18 09:15] VITALS: BP 136/86
[2020-05-18 11:38] VITALS: BP 134/86
--- NOTE | 2020-05-18 13:04 | NUR ---
Nutrition Followup Note Wt: 96.0 kg Pt was sleeping with guards by bedside. per records pt s/p lap chrystal, now advanced to regular diet with adequate PO of 75% x 3 per RN doc Est Energy needs: 8713-4403 kcals (17-20 kcal/kgBW), Est Protein needs: 78-97 gms/day (0.8-1.0 gm/kgBW). Will continue to monitor and reassess prn. Labs: CA 8.0 L, ALB 2.9 L. BM: pt had 1 BM 8 per RN note Skin: BS 22 low incision at site of sx full details in care transition manager note. PES: 1) Obesity aeb 129% IBW and BMI of 30.7 kg/m2 r/t energy intake in excess of energy needs Comments: Will continue to monitor PO intake skin status, pertinent labs and weight trends.F/u mod 3-5 days Rec: 1) Continue to closely monitor pt PO intake to meet at least 75% of meals. 2) Continue current plan of care
[2020-05-18 17:00] VITALS: BP 141/76
[2020-05-18] MEDS ORDERED: MAGNESIUM CITRATE SOLUTION 300 ML BTL PO ONE (19:00)
[2020-05-18] MEDS: MORPHINE SULF INJ 2 MG/ML SYRINGE 1ML IV PRN (21:16)
[2020-05-18 22:00] VITALS: BP 144/89
[2020-05-18] MEDS: LACTULOSE 20Gm/30ML SOLN PO SCH (22:32)
[2020-05-18] MEDS: SENNA 8.6 MG TAB PO SCH (22:33)
[2020-05-19] MEDS: OXYCODONE W/ ACETAMINOPHEN 5/325MG TABLET PO PRN ×6 (02:17→20:40)
[2020-05-19] MEDS: VANCOMYCIN 1GM/250ML 250 ML IV SCH ×2 (02:35→10:00)
[2020-05-19 06:00] VITALS: BP 143/59
[2020-05-19 06:18] LABS: Basophils # (auto) 0 10 ^3/uL (0-0.2); Basophils % (auto) 0.5 % (0.0-2.0); Eosinophils # (auto) 0.6 10 ^3/uL (0-0.8); Eosinophils % (auto) 7.9 % (0.0-7.0); Hematocrit 27.6 % (41.0-53.0); Hemoglobin 9.3 g/dL (13.5-17.5); Lymphocytes # (auto) 1.9 10 ^3/uL (0.4-5.4); Lymphocytes % (auto) 24.7 % (10.0-50.0); Mean Corpuscular Hemoglobin 29.3 pg (28.0-32.0); Mean Corpuscular Hgb Conc. 33.7 g/dL (32.0-36.0); Mean Corpuscular Volume 86.9 fL (80.0-100.0); Monocytes # (auto) 0.6 10 ^3/uL (0-1.3); Monocytes % (auto) 8.1 % (0.0-12.0); Neutrophils # (auto) 4.4 10 ^3/uL (1.6-8.6); Neutrophils % (auto) 58.8 % (37.0-80.0); Nucleated Red Blood Cells % 0.2 %; Platelet Count (auto) 280 10^3/uL (140-450); Red Blood Cells 3.17 10^6/uL (4.5-5.90); Red Cell Distribution Width 14.1 % (11.8-14.3); White Blood Cell 7.5 10^3/uL (4.4-10.8)
[2020-05-19] MEDS: PIPERACILLIN-TAZO 4.5GM 100 ML IV SCH ×2 (06:52→14:30)
[2020-05-19] MEDS: DOCUSATE SOD 100 MG CAP PO SCH ×2 (06:53→14:00)
[2020-05-19] MEDS: FERROUS SULFATE 300 MG/5 ML ORAL LIQ PO SCH ×2 (06:53→14:00)
[2020-05-19 09:00] VITALS: BP 155/97
[2020-05-19] MEDS: MILK OF MAGNESIA 30ML SUSP PO SCH (10:00)
[2020-05-19] MEDS: PANTOPRAZOLE 40 MG TAB PO SCH (10:00)
[2020-05-19] MEDS: LACTULOSE 20Gm/30ML SOLN PO SCH (10:30)
[2020-05-19] MEDS: ENOXAPARIN SOD 30 MG/0.3 ML SYRINGE SC SCH (10:30)
[2020-05-19] MEDS ORDERED: LACT10SO3 PO (15:59)
[2020-05-19] MEDS ORDERED: LEVO500T21 PO (15:59)
[2020-05-19] MEDS ORDERED: FER300LQ PO (15:59)
[2020-05-19 16:41] VITALS: BP 155/82
--- NOTE | 2020-05-19 18:38 | NUR ---
pain well controlled. tolerating po intake. Dr. Galloway discharges after rounding. Surgeons note reviewed. May DC karthik drain if output is less than 20cc a day or changes to serious fluid. less than 20cc out during this day shift. Page out to him now for clarification.
[2020-05-19 20:00] VITALS: BP 148/69
--- NOTE | 2020-05-19 20:30 | NUR ---
ADRIANA DRAIN IS INTACT. DRAINED 10 ML FOR THE WHOLE 12 HOUR SHIFT. FROM 12 MIDNIGHT TO 0600 THIS AM, PATIENT HAD AN OUTPUT OF ONLY 15 ML. PULLED OUT ADRIANA DRAIN ORDERED. PATIENT TOLERATED VERY WELL. CLEANED WITH A BETADINE PAIN AND APPLIED STERILE DRESSING.
[2020-05-19 21:00] VITALS: BP 148/69
--- NOTE | 2020-05-19 21:00 | NUR ---
DC PAPERS HAND OVER TO THE [employer] AUT[employer] BODY REPAIRER. DC INSTRUCTION GIVEN TO THE PATIENT AND SHOWED UNDERSTANDING. REFUSED MRSA SWAB PER HOSPITAL POLICY. ADVISED PATIENT TO NOTIFY OFFICERS/ NURSE IF AND SYMPTOM GETS WORSE. SHOWED UNDERSTANDING.
--- NOTE | 2020-05-19 21:20 | NUR ---
DC PATIENT TO THE RESIDENTIAL. VITALS ARE STABLE. NO SOB NOTED. AFEBRILE. DC PAPERS ARE COMPLETE. SHOWED UNDERSTANDING OF ALL DC INSTRUCTION.
== END 2020-05-19 21:20 | DRG 417 ==
LOC: EEVIPCON 16:14 → ER 16:14 → OVERFLOW 16:15 → WEST WING 21:55
PROVIDERS: ADMIT Internal Medicine; ATTEND Internal Medicine
PROC: 0DNU4ZZ Release Omentum, Percutaneous Endoscopic Approach (ICD-10-PCS; 2020-05-13)
PROC: 0FT44ZZ Resection of Gallbladder, Percutaneous Endoscopic Approach (ICD-10-PCS; principal; 2020-05-13 14:29)
PROC: 30233N1 Transfusion of Nonautologous Red Blood Cells into Peripheral Vein, Percutaneous Approach (ICD-10-PCS; 2020-05-15)
PROC: 0W9G4ZZ Drainage of Peritoneal Cavity, Percutaneous Endoscopic Approach (ICD-10-PCS; 2020-05-15)
DX: K80.00 Calculus of gallbladder with acute cholecystitis without obstruction (principal); K66.1 Hemoperitoneum; Z20.828 Contact with and (suspected) exposure to other viral communicable diseases; D64.9 Anemia, unspecified; F12.90 Cannabis use, unspecified, uncomplicated; F17.210 Nicotine dependence, cigarettes, uncomplicated; G89.29 Other chronic pain; I95.81 Postprocedural hypotension; K59.00 Constipation, unspecified; K66.0 Peritoneal adhesions (postprocedural) (postinfection); K82.8 Other specified diseases of gallbladder; K86.89 Other specified diseases of pancreas; Z82.49 Family history of ischemic heart disease and other diseases of the circulatory system
CPT/HCPCS: 36415; 36600; 71045; 71275; 74176; 76705; 80048; 80053; 80074; 80202; 81001; 82565; 82805; 82962; 83605; 83690; 84484; 85025; 85610; 85730; 86850; 86900; 86901; 86920; C9113; G0378; J0330; J0690; J1100; J1885; J2001; J2250; J2405; J2543; J2704; J3490

== ENCOUNTER 2020-05-21 17:38 | Inpatient (IN) | payer OTHER ==
[~2020-05-21] VITALS: Ht 170.2 cm; Wt 93.3 kg
[~2020-05-21 17:38] MED LIST: FER300LQ PO; LACT10SO3 PO; LEVO500T21 PO
[2020-05-21] MEDS ORDERED: SODIUM CHLORIDE 0.9% 500 ML IVB ONE (18:05)
[2020-05-21] MEDS ORDERED: MORPHINE SULFATE 4 MG/ML SYR/VIAL IV ONE (18:15)
[2020-05-21] MEDS ORDERED: ONDANSETRON HCL 4 MG/2 ML VIAL IV ONE (18:15)
[2020-05-21 19:00] LABS: Basophils # (auto) 0 10 ^3/uL (0-0.2); Basophils % (auto) 0.4 % (0.0-2.0); Eosinophils # (auto) 0.6 10 ^3/uL (0-0.8); Eosinophils % (auto) 5.6 % (0.0-7.0); Hematocrit 31.3 % (41.0-53.0); Hemoglobin 10.2 g/dL (13.5-17.5); Lymphocytes # (auto) 2.9 10 ^3/uL (0.4-5.4); Lymphocytes % (auto) 27.3 % (10.0-50.0); Mean Corpuscular Hemoglobin 28.4 pg (28.0-32.0); Mean Corpuscular Hgb Conc. 32.5 g/dL (32.0-36.0); Mean Corpuscular Volume 87.1 fL (80.0-100.0); Monocytes # (auto) 0.6 10 ^3/uL (0-1.3); Monocytes % (auto) 5.7 % (0.0-12.0); Neutrophils # (auto) 6.5 10 ^3/uL (1.6-8.6); Nucleated Red Blood Cells % 0.1 %; Platelet Count (auto) 429 10^3/uL (140-450); Red Cell Distribution Width 14.8 % (11.8-14.3); White Blood Cell 10.7 10^3/uL (4.4-10.8)
[2020-05-21 19:22] LABS: Albumin 3.4 g/dL (3.4-5.0); Calcium 8.9 mg/dL (8.5-10.1)
[2020-05-21 19:25] LABS: BUN/Creatinine Ratio 20.2; Bilirubin, Total 0.5 mg/dL (0.2-1.0); Total Protein 7.9 g/dL (6.4-8.2)
[2020-05-21] MEDS ORDERED: ONDANSETRON HCL 4 MG/2 ML VIAL IV PRN (21:45)
[2020-05-21] MEDS: PANTOPRAZOLE 40 MG/10 ML VIAL INJ IV SCH (22:57)
--- NOTE | 2020-05-21 23:00 | NUR ---
MS admit from [facility] admitted to tele/MS after SBAR received. Patient oriented to MARIA T NGUYEN, RN primary RN, unit, room, bed, and unit policies regarding patient care and visiting hours. Patient weighed by bedscale and encouraged to call if they need something. All questions and concerns addressed, patient verbalized understanding. bed in low position and call light within reach
[2020-05-21] MEDS: HYDROcodone-ACET 5/325MG TAB PO PRN (23:40)
--- NOTE | 2020-05-21 23:40 | NUR ---
PAIN PATIENT REPORTS 6/10 PAIN, HEADACHE. PATIENT MEDICATED PER MD ORDER
[2020-05-21] MEDS: D5W/SOD CHL 0.45% 1,000 ML IV SCH (23:48)
[2020-05-21] MEDS: PIPERACILLIN-TAZOB 3.375GM 100 ML IV SCH (23:48)
--- NOTE | 2020-05-22 | NUR ---
IV insertion/IV DC'd IV access obtained, via clean sterile technique by inserting 20 gauge catheter at left AC after 1 attempt. IV secured properly. No trauma to site. Patient tolerated well.IV DC'd to right AC with clean sterile technique, catheter fully intact. Pressure dressing applied to site. Patient tolerated well.
[2020-05-22 00:13] VITALS: BP 137/91
[2020-05-22] MEDS: HYDROmorphone HCL 2 MG/ML VL IV PRN (04:46)
--- NOTE | 2020-05-22 04:49 | NUR ---
PAIN PAIN7/10 HEADACHE. ACHING PAIN,.PER PATIENT:I HAVE NOT ATE" PATIENT MEDICATED PER MD ORDER. INFORMED PATIENT HE IS ON CLEAR LIQUID DIET. PATIENT VERBALIZED UNDERSTANDING
[2020-05-22 05:00] VITALS: BP 134/90
--- NOTE | 2020-05-22 05:10 | NUR ---
covid swab taken to lab
[2020-05-22 05:27] LABS: Urine Bacteria FEW /hpf (None Seen); Urine Blood Negative /uL (Negative); Urine Mucus FEW (None Seen); Urine Specific Gravity 1.021 (1.001-1.035); Urine WBC 1 /hpf (0 - 3)
[2020-05-22] MEDS: PIPERACILLIN-TAZOB 3.375GM 100 ML IV SCH ×4 (06:05→23:41)
[2020-05-22] MEDS: HYDROcodone-ACET 5/325MG TAB PO PRN ×4 (06:32→22:20)
--- NOTE | 2020-05-22 06:32 | NUR ---
PAIN 6/10 HEADACHE ACHING PATIENT REQUESTING MEDICATION. PATIENT MEDICATED PER MD ORDER.
--- NOTE | 2020-05-22 06:39 | NUR ---
patient rounds patient resting in bed watching tv. denies sob or distress. call light within reach and bed in low position. guards at bedside.
--- NOTE | 2020-05-22 07:16 | NUR ---
report given to dayshift rn patient shows no signs of sob distress or pain
[2020-05-22 07:48] LABS: Albumin 3.4 g/dL (3.4-5.0); Calcium 8.6 mg/dL (8.5-10.1); Potassium 3.8 mmol/L (3.5-5.1)
[2020-05-22 07:58] LABS: Bilirubin, Total 0.7 mg/dL (0.2-1.0); Total Protein 7.4 g/dL (6.4-8.2)
--- NOTE | 2020-05-22 07:59 | NUR ---
Opening Shift Note Assumed care of patient, asleep but easily aroused. No S/S of distress/SOB or pain. Instructed on POC and to call for assist PRN, will continue to monitor for changes Q1hr and PRN. Guards at bedside for safety.
[2020-05-22 08:00] LABS: BUN/Creatinine Ratio 17.5
[2020-05-22 09:00] VITALS: BP 125/67
[2020-05-22] MEDS: PANTOPRAZOLE 40 MG/10 ML VIAL INJ IV SCH ×2 (10:39→22:19)
[2020-05-22 13:00] VITALS: BP 115/68
[2020-05-22 17:00] VITALS: BP 131/84
[2020-05-22] MEDS: D5W/SOD CHL 0.45% 1,000 ML IV SCH (17:46)
--- NOTE | 2020-05-22 19:30 | NUR ---
Opening Shift Note Assumed care of patient, awake and alert. A&Ox4. No S/S of distress/SOB or pain. Safety measures maintained by keeping the bed locked in lowest position, 2 side rails up, personal items and call light within reach. Guards present. Instructed on POC and to call for assist PRN, will continue to monitor for changes Q1hr and PRN.
[2020-05-22 22:00] VITALS: BP 117/64
[2020-05-23] MEDS: D5W/SOD CHL 0.45% 1,000 ML IV SCH ×2 (00:36→15:13)
[2020-05-23] MEDS: HYDROcodone-ACET 5/325MG TAB PO PRN ×2 (04:32→18:04)
[2020-05-23 05:00] VITALS: BP 118/56
[2020-05-23] MEDS: PIPERACILLIN-TAZOB 3.375GM 100 ML IV SCH ×5 (06:05→23:55)
[2020-05-23 07:07] LABS: Basophils # (auto) 0 10 ^3/uL (0-0.2); Basophils % (auto) 0.5 % (0.0-2.0); Eosinophils # (auto) 0.7 10 ^3/uL (0-0.8); Eosinophils % (auto) 8.1 % (0.0-7.0); Hematocrit 33.8 % (41.0-53.0); Hemoglobin 10.8 g/dL (13.5-17.5); Lymphocytes # (auto) 2.2 10 ^3/uL (0.4-5.4); Lymphocytes % (auto) 24.7 % (10.0-50.0); Mean Corpuscular Hemoglobin 27.9 pg (28.0-32.0); Mean Corpuscular Volume 87.1 fL (80.0-100.0); Monocytes # (auto) 0.6 10 ^3/uL (0-1.3); Monocytes % (auto) 6.3 % (0.0-12.0); Neutrophils # (auto) 5.5 10 ^3/uL (1.6-8.6); Neutrophils % (auto) 60.4 % (37.0-80.0); Nucleated Red Blood Cells % 0.1 %; Platelet Count (auto) 431 10^3/uL (140-450); Red Blood Cells 3.88 10^6/uL (4.5-5.90); Red Cell Distribution Width 14.9 % (11.8-14.3)
[2020-05-23 07:29] LABS: INR 1.03 (0.9-1.15); Partial Thromboplastin Time 27.5 sec (23.0-31.2)
[2020-05-23 07:36] LABS: Albumin 3.3 g/dL (3.4-5.0); BUN/Creatinine Ratio 12.4; Bilirubin, Total 0.7 mg/dL (0.2-1.0); Calcium 8.6 mg/dL (8.5-10.1); Total Protein 7.7 g/dL (6.4-8.2)
[2020-05-23 09:00] VITALS: BP 109/59
[2020-05-23] MEDS: PANTOPRAZOLE 40 MG/10 ML VIAL INJ IV SCH ×2 (09:57→22:17)
[2020-05-23] MEDS: HYDROmorphone HCL 2 MG/ML VL IV PRN ×4 (09:58→22:39)
[2020-05-23] MEDS ORDERED: IOHEXOL 300 MG/ML 100ML BOTTLE IJ ONE (11:55)
[2020-05-23] MEDS ORDERED: SUCCINYLCHOLINE CHLORIDE 20 MG/ML 10ML VIAL IV ONE (12:05)
[2020-05-23] MEDS ORDERED: ROCURONIUM 10MG/ML 10ML VIAL IV ONE (12:08)
[2020-05-23] MEDS ORDERED: LIDOCAINE 2% (LOCAL ANESTH.) PF 5ml SDV ONE (12:08)
[2020-05-23] MEDS ORDERED: ONDANSETRON HCL 4 MG/2 ML VIAL ONE (12:08)
[2020-05-23] MEDS ORDERED: PROPOFOL 10 MG/ML 20 ML IV ONE (12:08)
[2020-05-23] MEDS ORDERED: DexAMETHasone SOD PHOS 10MG/1ML VIAL INJ ONE (12:08)
--- NOTE | 2020-05-23 12:15 | NUR ---
PATIENT TAKEN DOWN TO OR FOR A PROCEDURE.
[2020-05-23] MEDS ORDERED: fentaNYL CITRATE 100 MCG/2 ML VL ONE (12:56)
[2020-05-23 14:00] VITALS: BP 123/69
--- NOTE | 2020-05-23 14:00 | NUR ---
PATIENT BACK FROM OR RESTING IN BED, RESPIRATION ARE EVEN AND UNLABORED, V/S WNL. PATIENT DENIES PAIN AT THIS TIME. NO S/S OF DISTRESS NOTED. V/S 98.0 123/69 BP 95% O2 76 HR 12 RR
[2020-05-23] MEDS ORDERED: ONDANSETRON HCL 4 MG/2 ML VIAL IV PRN (14:15)
[2020-05-23] MEDS ORDERED: LABETALOL HCL 5 MG/ML 4ML SYRINGE IV PRN (14:15)
[2020-05-23] MEDS ORDERED: HYDROmorphone HCL 2 MG/ML VL IV PRN ×2 (14:15)
[2020-05-23 17:00] VITALS: BP 114/64
--- NOTE | 2020-05-23 19:30 | NUR ---
Opening Shift Note Assumed care of patient, awake and alert. A&Ox4. No S/S of distress/SOB or pain. Safety measures maintained by keeping the bed locked in lowest position, 2 side rails up, personal items and call light within reach. Instructed on POC and to call for assist PRN, will continue to monitor for changes Q1hr and PRN.
[2020-05-23 22:09] VITALS: BP 134/77
[2020-05-24] MEDS: HYDROmorphone HCL 2 MG/ML VL IV PRN ×6 (01:39→20:08)
[2020-05-24] MEDS: D5W/SOD CHL 0.45% 1,000 ML IV SCH ×2 (03:09→18:01)
[2020-05-24 05:16] VITALS: BP 113/50
[2020-05-24] MEDS: PIPERACILLIN-TAZOB 3.375GM 100 ML IV SCH ×3 (05:45→18:01)
[2020-05-24 06:22] LABS: Basophils # (auto) 0 10 ^3/uL (0-0.2); Eosinophils # (auto) 0.1 10 ^3/uL (0-0.8); Hemoglobin 9.9 g/dL (13.5-17.5); Lymphocytes # (auto) 2.1 10 ^3/uL (0.4-5.4); Monocytes # (auto) 0.6 10 ^3/uL (0-1.3); Monocytes % (auto) 6.5 % (0.0-12.0); Nucleated Red Blood Cells % 0.1 %
[2020-05-24 06:24] LABS: Basophils % (auto) 0.3 % (0.0-2.0); Eosinophils % (auto) 1.2 % (0.0-7.0); Hematocrit 28.9 % (41.0-53.0); Lymphocytes % (auto) 21.5 % (10.0-50.0); Mean Corpuscular Hemoglobin 29.5 pg (28.0-32.0); Mean Corpuscular Hgb Conc. 34.2 g/dL (32.0-36.0); Mean Corpuscular Volume 86.1 fL (80.0-100.0); Neutrophils # (auto) 6.8 10 ^3/uL (1.6-8.6); Neutrophils % (auto) 70.5 % (37.0-80.0); Platelet Count (auto) 458 10^3/uL (140-450); Red Blood Cells 3.35 10^6/uL (4.5-5.90); Red Cell Distribution Width 14.8 % (11.8-14.3); White Blood Cell 9.6 10^3/uL (4.4-10.8)
[2020-05-24 06:46] LABS: Potassium 3.9 mmol/L (3.5-5.1)
[2020-05-24 06:54] LABS: BUN/Creatinine Ratio 14.3; Bilirubin, Total 0.9 mg/dL (0.2-1.0); Calcium 8.5 mg/dL (8.5-10.1); Total Protein 7.3 g/dL (6.4-8.2)
[2020-05-24 08:00] VITALS: BP 120/62
[2020-05-24] MEDS: PANTOPRAZOLE 40 MG/10 ML VIAL INJ IV SCH ×2 (09:03→21:59)
--- NOTE | 2020-05-24 11:10 | NUR ---
Doctor Storm at bedside discussing POC with patient, patient verbalized understanding and agrees with POC.
[2020-05-24 12:00] VITALS: BP 124/83
--- NOTE | 2020-05-24 13:37 | NUR ---
Nutrition Assessment Notes Please refer to link for full assessment notes. Est Energy needs: 5345-7276 kcals (17-20 kcal/kgBW) Est Protein needs: 73-92 gms/day (0.8-1.0 gm/kgBW) Will continue to monitor and reassess prn. Addendum: 05/24/20 at [address] Amended: Links added.
[2020-05-24 16:57] VITALS: BP 130/77
--- NOTE | 2020-05-24 19:30 | NUR ---
Opening Shift Note Assumed care of patient, awake and alert. Patient laying in bed. A&Ox4. No S/S of distress/SOB or pain. Safety measures maintained by keeping the bed locked in lowest position, personal items and call light within reach. Guards present. Instructed on POC and to call for assist PRN, will continue to monitor for changes Q1hr and PRN.
[2020-05-24 21:00] VITALS: BP 130/76
--- NOTE | 2020-05-24 21:00 | NUR ---
Dr. Stephenson at bedside Discharge orders and prescription orders for discharge received.
--- NOTE | 2020-05-24 21:30 | NUR ---
Per Patient Patient would not like to be discharged at this time because of abdominal pain. Patient would like to be discharged in the morning. Dr. Sachin sánchez.
[2020-05-25] MEDS: PIPERACILLIN-TAZOB 3.375GM 100 ML IV SCH ×2 (00:09→06:03)
[2020-05-25] MEDS: HYDROmorphone HCL 2 MG/ML VL IV PRN ×2 (00:09→04:11)
[2020-05-25 05:00] VITALS: BP 133/85
[2020-05-25] MEDS: D5W/SOD CHL 0.45% 1,000 ML IV SCH (05:54)
[2020-05-25 06:20] LABS: Basophils # (auto) 0.1 10 ^3/uL (0-0.2); Basophils % (auto) 0.8 % (0.0-2.0); Eosinophils # (auto) 0.4 10 ^3/uL (0-0.8); Eosinophils % (auto) 4.8 % (0.0-7.0); Hematocrit 30.2 % (41.0-53.0); Hemoglobin 9.7 g/dL (13.5-17.5); Lymphocytes # (auto) 2.6 10 ^3/uL (0.4-5.4); Lymphocytes % (auto) 28.3 % (10.0-50.0); Mean Corpuscular Hemoglobin 28.2 pg (28.0-32.0); Mean Corpuscular Hgb Conc. 32.2 g/dL (32.0-36.0); Mean Corpuscular Volume 87.6 fL (80.0-100.0); Monocytes # (auto) 0.5 10 ^3/uL (0-1.3); Monocytes % (auto) 5.4 % (0.0-12.0); Neutrophils # (auto) 5.5 10 ^3/uL (1.6-8.6); Neutrophils % (auto) 60.7 % (37.0-80.0); Platelet Count (auto) 445 10^3/uL (140-450); Red Blood Cells 3.45 10^6/uL (4.5-5.90); Red Cell Distribution Width 14.7 % (11.8-14.3); White Blood Cell 9.2 10^3/uL (4.4-10.8)
[2020-05-25] MEDS: HYDROcodone-ACET 5/325MG TAB PO PRN (08:47)
[2020-05-25 09:00] VITALS: BP 128/82
--- NOTE | 2020-05-25 09:30 | NUR ---
Discharge instructions given as ordered. Encourage to follow up with facility MD. All questions and concerns addressed. Patient verbalized understanding. Medication reconciliation form completed and copy given to patient. IV removed with catheter intact, pressure dressing applied. Patient released to guards. No distress noted at this time.
== END 2020-05-25 09:30 | DRG 395 ==
LOC: EDBD 17:38 → EEVIPCON 17:45 → ER 17:45 → OVERFLOW 17:46 → WEST WING 23:00
PROVIDERS: ADMIT Specialist; ATTEND Specialist
PROC: BF101ZZ Fluoroscopy of Bile Ducts using Low Osmolar Contrast (ICD-10-PCS; 2020-05-23)
PROC: 0FC98ZZ Extirpation of Matter from Common Bile Duct, Via Natural or Artificial Opening Endoscopic (ICD-10-PCS; principal; 2020-05-23 12:29)
DX: K91.86 Retained cholelithiasis following cholecystectomy (principal); D64.9 Anemia, unspecified; B18.2 Chronic viral hepatitis C; F17.210 Nicotine dependence, cigarettes, uncomplicated; Z82.49 Family history of ischemic heart disease and other diseases of the circulatory system; Z90.49 Acquired absence of other specified parts of digestive tract; Z20.828 Contact with and (suspected) exposure to other viral communicable diseases
CPT/HCPCS: 36415; 74018; 74176; 76000; 80053; 81001; 82150; 83690; 85025; 85610; 85730; 86850; 86900; 86901; 87081; C9113; G0378; J0330; J1100; J2001; J2405; J2543; J2704

== ENCOUNTER 2020-12-17 15:16 | Inpatient (IN) | payer OTHER ==
[~2020-12-17] VITALS: Ht 175.3 cm; Wt 90.0 kg
[~2020-12-17 15:16] MED LIST changes: -LEVO500T21 PO; +LEVO500T31 PO
[2020-12-17] MEDS ORDERED: KETOROLAC TROMETH 30 MG/ML 1ML VIAL IV ONE (15:30)
[2020-12-17] MEDS ORDERED: SODIUM CHLORIDE 0.9% 1,000 ML IVB ONE (15:30)
[2020-12-17 16:27] LABS: Urine Bacteria NONE SEEN /hpf (None Seen); Urine Blood Negative /uL (Negative); Urine Specific Gravity 1.022 (1.001-1.035); Urine WBC <1 /hpf (0 - 3)
[2020-12-17 16:45] LABS: Albumin 3.8 g/dL (3.4-5.0); Calcium 8.8 mg/dL (8.5-10.1); Potassium 4.4 mmol/L (3.5-5.1)
[2020-12-17 16:50] LABS: BUN/Creatinine Ratio 18.8; Bilirubin, Total 0.3 mg/dL (0.2-1.0); Total Protein 8.2 g/dL (6.4-8.2)
[2020-12-17 17:16] LABS: Basophils # (auto) 0 10 ^3/uL (0-0.2); Basophils % (auto) 0.7 % (0.0-2.0); Eosinophils # (auto) 0.1 10 ^3/uL (0-0.8); Eosinophils % (auto) 2.4 % (0.0-7.0); Hematocrit 45.4 % (41.0-53.0); Hemoglobin 15.5 g/dL (13.5-17.5); Lymphocytes # (auto) 2.5 10 ^3/uL (0.4-5.4); Lymphocytes % (auto) 40.8 % (10.0-50.0); Mean Corpuscular Hemoglobin 29.6 pg (28.0-32.0); Mean Corpuscular Hgb Conc. 34.2 g/dL (32.0-36.0); Mean Corpuscular Volume 86.6 fL (80.0-100.0); Monocytes # (auto) 0.4 10 ^3/uL (0-1.3); Monocytes % (auto) 5.8 % (0.0-12.0); Neutrophils # (auto) 3.1 10 ^3/uL (1.6-8.6); Neutrophils % (auto) 50.3 % (37.0-80.0); Nucleated Red Blood Cells % 0.4 %; Red Blood Cells 5.24 10^6/uL (4.5-5.90); Red Cell Distribution Width 13.8 % (11.8-14.3); White Blood Cell 6.2 10^3/uL (4.4-10.8)
[2020-12-17] MEDS ORDERED: MORPHINE SULFATE 4 MG/ML SYR/VIAL IV ONE (18:00)
[2020-12-17] MEDS ORDERED: ONDANSETRON HCL 4 MG/2 ML VIAL IV ONE ×2 (18:00→18:45)
[2020-12-17] MEDS ORDERED: NITROGLYCERIN 0.4 MG SL TAB SL PRN (18:45)
[2020-12-17] MEDS ORDERED: HYDROcodone-ACET 10/325MG TAB PO PRN (18:45)
[2020-12-17] MEDS ORDERED: MORPHINE SULFATE INJECTION 2 MG/ML SYRG IV PRN (18:45)
[2020-12-17] MEDS ORDERED: ONDANSETRON HCL 4 MG/2 ML VIAL IV PRN (19:00)
[2020-12-17 19:24] LABS: INR 0.97 (0.9-1.15)
[2020-12-17 23:00] VITALS: BP 190/90
[2020-12-17] MEDS ORDERED: OMEP20TA PO (23:04)
[2020-12-18] MEDS: metroNIDAZOLE 500MG/100ML 100 ML IV SCH ×4 (00:36→21:41)
[2020-12-18] MEDS ORDERED: MORPHINE SULFATE 4 MG/ML SYR/VIAL ONE (03:51)
[2020-12-18] MEDS: MORPHINE SULFATE 4 MG/ML SYR/VIAL IV PRN ×5 (03:52→22:44)
[2020-12-18 05:00] VITALS: BP 130/74
[2020-12-18 07:30] LABS: Albumin 3.4 g/dL (3.4-5.0); BUN/Creatinine Ratio 21.4; Calcium 8.4 mg/dL (8.5-10.1)
[2020-12-18 07:32] LABS: Bilirubin, Total 0.5 mg/dL (0.2-1.0)
[2020-12-18 08:00] VITALS: BP 132/87
[2020-12-18 08:30] VITALS: BP 132/87
[2020-12-18] MEDS ORDERED: PANTOPRAZOLE 40 MG TAB PO SCH (10:00)
[2020-12-18] MEDS: levoFLOXacin 500MG 100 ML IV SCH (10:11)
[2020-12-18] MEDS: ENOXAPARIN SOD 40 MG/0.4 ML SYRINGE SC SCH (10:12)
[2020-12-18] MEDS: PANTOPRAZOLE 40 MG/10 ML VIAL INJ IV SCH ×2 (10:12→21:41)
[2020-12-18 12:30] VITALS: BP 124/75
[2020-12-18 16:46] VITALS: BP 121/75
[2020-12-18 22:00] VITALS: BP 132/79
[2020-12-19] MEDS: MORPHINE SULFATE 4 MG/ML SYR/VIAL IV PRN ×6 (02:52→22:57)
[2020-12-19 05:00] VITALS: BP 113/68
[2020-12-19 05:56] LABS: Basophils # (auto) 0 10 ^3/uL (0-0.2); Basophils % (auto) 0.5 % (0.0-2.0); Eosinophils # (auto) 0.3 10 ^3/uL (0-0.8); Eosinophils % (auto) 4.5 % (0.0-7.0); Hematocrit 42.2 % (41.0-53.0); Hemoglobin 14.4 g/dL (13.5-17.5); Lymphocytes # (auto) 2.1 10 ^3/uL (0.4-5.4); Mean Corpuscular Hemoglobin 29.4 pg (28.0-32.0); Mean Corpuscular Volume 86.3 fL (80.0-100.0); Monocytes # (auto) 0.4 10 ^3/uL (0-1.3); Neutrophils # (auto) 3.1 10 ^3/uL (1.6-8.6); Nucleated Red Blood Cells % 0.2 %; Red Blood Cells 4.89 10^6/uL (4.5-5.90); Red Cell Distribution Width 13.7 % (11.8-14.3); White Blood Cell 5.9 10^3/uL (4.4-10.8)
[2020-12-19 06:07] LABS: Albumin 3.3 g/dL (3.4-5.0); BUN/Creatinine Ratio 11.7; Calcium 8.6 mg/dL (8.5-10.1)
[2020-12-19 06:10] LABS: Bilirubin, Total 0.5 mg/dL (0.2-1.0); Total Protein 6.9 g/dL (6.4-8.2)
[2020-12-19] MEDS: metroNIDAZOLE 500MG/100ML 100 ML IV SCH ×3 (06:26→21:24)
[2020-12-19 08:00] VITALS: BP 122/72
[2020-12-19 08:29] LABS: INR 1.09 (0.9-1.15); Partial Thromboplastin Time 30.4 sec (23.0-31.2)
[2020-12-19 09:00] VITALS: BP 122/72
[2020-12-19] MEDS: levoFLOXacin 500MG 100 ML IV SCH (10:45)
[2020-12-19] MEDS: PANTOPRAZOLE 40 MG/10 ML VIAL INJ IV SCH ×2 (10:46→21:25)
[2020-12-19] MEDS: ENOXAPARIN SOD 40 MG/0.4 ML SYRINGE SC SCH (10:46)
[2020-12-19] MEDS ORDERED: LIDOCAINE VISCOUS 2% 15ML UD ONE (11:29)
[2020-12-19] MEDS ORDERED: diphenhdrAMINE HCL 50 MG/1 ML VL ONE (11:30)
[2020-12-19] MEDS: MIDAZOLAM HCL 5 MG/ML-1ML VIAL ONE ×2 (12:15→12:18)
[2020-12-19] MEDS: fentaNYL CITRATE 100 MCG/2 ML VL ONE ×2 (12:15→12:18)
[2020-12-19 17:30] VITALS: BP 122/83
[2020-12-19 22:00] VITALS: BP 140/80
[2020-12-20] MEDS: MORPHINE SULFATE 4 MG/ML SYR/VIAL IV PRN ×3 (04:10→12:33)
[2020-12-20] MEDS: metroNIDAZOLE 500MG/100ML 100 ML IV SCH ×2 (04:54→14:00)
[2020-12-20 05:00] VITALS: BP 133/92
[2020-12-20 07:13] LABS: Potassium 3.7 mmol/L (3.5-5.1)
[2020-12-20 07:23] LABS: Albumin 3.5 g/dL (3.4-5.0); Bilirubin, Total 0.3 mg/dL (0.2-1.0); Calcium 8.9 mg/dL (8.5-10.1); Total Protein 7.3 g/dL (6.4-8.2)
[2020-12-20 08:00] VITALS: BP 134/84
[2020-12-20 08:21] VITALS: BP 134/84
[2020-12-20] MEDS: PANTOPRAZOLE 40 MG/10 ML VIAL INJ IV SCH (10:34)
[2020-12-20] MEDS: levoFLOXacin 500MG 100 ML IV SCH (10:34)
[2020-12-20] MEDS: ENOXAPARIN SOD 40 MG/0.4 ML SYRINGE SC SCH (10:38)
[2020-12-20 13:00] VITALS: BP 134/90
[2020-12-20 13:06] VITALS: BP 134/90
[2020-12-21 15:05] LABS: Hepatitis A Ab IgM Negative; Hepatitis B Surface Antigen Negative (Negative)
[2020-12-21 15:06] LABS: Hepatitis B Core IgM Negative
[2020-12-21 16:10] LABS: Hepatitis C Antibody Reactive (Negative)
== END 2020-12-20 15:24 | DRG 392 ==
LOC: EDBD 15:16 → EEVIPCON 15:16 → ER 15:16 → OVERFLOW 18:39 → WEST WING 22:34
PROVIDERS: ADMIT Internal Medicine; ATTEND Internal Medicine
PROC: 0DB68ZX Excision of Stomach, Via Natural or Artificial Opening Endoscopic, Diagnostic (ICD-10-PCS; principal; 2020-12-19 12:18)
DX: K29.80 Duodenitis without bleeding (principal); B18.2 Chronic viral hepatitis C; F17.210 Nicotine dependence, cigarettes, uncomplicated; K21.9 Gastro-esophageal reflux disease without esophagitis; K76.0 Fatty (change of) liver, not elsewhere classified; K86.89 Other specified diseases of pancreas; Z20.822 Contact with and (suspected) exposure to COVID-19; Z82.49 Family history of ischemic heart disease and other diseases of the circulatory system; Z90.49 Acquired absence of other specified parts of digestive tract
CPT/HCPCS: 36415; 43239; 74176; 74181; 76705; 80053; 80074; 81001; 82150; 83690; 85025; 85610; 85730; 86850; 86900; 86901; 87426; 96361; 96374; 96375; C9113; G0378; J1885; J1956; J2250; J2405; J3490